=== PATIENT | male | born 1945 | race Caucasian/White ===

== ENCOUNTER 2022-11-28 14:32 | Day surgery (SDC) | payer MEDICARE ==
[~2022-11-28] VITALS: Ht 167.6 cm; Wt 73.4 kg
[~2022-11-28 14:32] MED LIST: ASPI81CH33 PO; CLOP75TA2; CYAN100050; LISI2.5T9; MELA3TAB30; METO1TAB87; PANT40TA29; ROSU20TA5; TAMS1CAP17; VASC1CAP2
[2022-11-28] MEDS ORDERED: LR 1,000 ML IV SCH (15:35)
[2022-11-28] MEDS ORDERED: VANCOMYCIN HCL 1,000 MG, VIAL MATE ADAPTER 1 EACH in NS 250 ML IV ONE (15:35)
[2022-11-28] MEDS ORDERED: propofoL 200 MG/20 ML VIAL As Ordered ONE (17:41)
[2022-11-28] MEDS ORDERED: MIDAZOLAM INJ 2MG/2ML VIAL As Ordered ONE (17:41)
[2022-11-28] MEDS ORDERED: fentaNYL 100 MCG/2 ML INJECTION As Ordered ONE (17:41)
[2022-11-28] MEDS ORDERED: LIDOCAINE 2% 100MG/5ML SDV (FOR ANES.) As Ordered ONE (17:41)
[2022-11-28] MEDS ORDERED: LIDOCAINE 1% SDV 30ML VIAL As Ordered ONE (17:49)
[2022-11-28 18:55] VITALS: BP 168/77
== END 2022-11-28 19:00 | disposition home or self-care (01) ==
LOC: M SDC 14:32
PROVIDERS: ATTEND Internal Medicine Cardiovascular Disease
DX: I63.9 Cerebral infarction, unspecified (principal); I48.91 Unspecified atrial fibrillation; I10 Essential (primary) hypertension; Z95.1 Presence of aortocoronary bypass graft; Z79.02 Long term (current) use of antithrombotics/antiplatelets; Z88.0 Allergy status to penicillin; Z85.46 Personal history of malignant neoplasm of prostate; Z92.3 Personal history of irradiation; E78.5 Hyperlipidemia, unspecified
CPT/HCPCS: 33285; 87635; C1764